=== PATIENT | female | born 1990 | race Caucasian/White ===

== ENCOUNTER 2018-10-31 20:42 | Emergency (ER) | payer MEDICAID ==
[~2018-10-31] VITALS: Ht 180.3 cm; Wt 85.0 kg
--- NOTE | 2018-10-31 21:35 | NUR ---
pt is 28 yo female c/o headache x5 days, dx with tension headache today and took prescribed med, flexeril at approx 1300, little relief, +nausea, blurry vision, family at bedside
[2018-10-31] MEDS ORDERED: proCHLORperazine 10 MG/2 ml inj IV ONE (22:45)
[2018-10-31] MEDS ORDERED: normal saline 1000ML IV soln IVB ONE (22:45)
[2018-10-31] MEDS ORDERED: diphenhydrAMINE 50 mg/ml inj IV ONE (22:45)
[2018-11-01] MEDS ORDERED: ketorolac tromethamine 15mg/ml inj. IV ONE (00:10)
[2018-11-01 00:22] VITALS: BP 132/84
== END 2018-11-01 00:23 | disposition home or self-care (01) ==
LOC: ER 20:43
DX: G43.909 Migraine, unspecified, not intractable, without status migrainosus (principal)
CPT/HCPCS: 96361; 96374; 96375; 99283; J0780; J1200; J1885; J7030

== ENCOUNTER 2018-11-04 08:01 | Emergency (ER) | payer MEDICAID ==
[~2018-11-04] VITALS: Ht 180.3 cm; Wt 84.0 kg
[2018-11-04] MEDS ORDERED: dexamethasone sod phosphate 10mg/ml inj IV STA (08:12)
[2018-11-04 08:13] VITALS: BP 135/94
[2018-11-04] MEDS ORDERED: LORazepam 2 mg/ml vial IV ONE (08:15)
[2018-11-04] MEDS ORDERED: metoclopramide 5 mg/ml inj IV ONE (08:15)
[2018-11-04] MEDS ORDERED: normal saline 1000ML IV soln IVB ONE (08:15)
[2018-11-04 08:39] LABS: BASOPHILS % (AUTO) 0.5 % (0-1); EOSINOPHILS # (AUTO) 0.1 X10'3 (0-0.9); EOSINOPHILS % (AUTO) 0.9 % (0-6); HEMATOCRIT 39.6 % (35.0-45.0); HEMOGLOBIN 13.2 g/dl (12.0-16.0); LYMPHOCYTES % (AUTO) 17.1 % (21-51); MEAN CORPUSCULAR HEMOGLOBIN 27.4 PG (27.0-31.0); MEAN CORPUSCULAR HGB CONC 33.4 g/dL (33.0-36.5); MEAN CORPUSCULAR VOLUME 82.1 FL (78-98); MEAN PLATELET VOLUME 8.3 FL (7.4-10.4); MONOCYTES # (AUTO) 0.5 X10'3 (0-0.9); MONOCYTES % (AUTO) 8.6 % (2-12); NEUTROPHILS # (AUTO) 4.3 X10'3 (1.8-7.7); NEUTROPHILS % (AUTO) 72.9 % (42-75); PLATELET COUNT 212 X10'3 (140-440); RED BLOOD COUNT 4.83 X10'6 (4.20-5.60); RED CELL DISTRIBUTION WIDTH 14.6 % (11.5-14.5); WHITE BLOOD COUNT 5.9 X10'3 (4.5-11.0)
[2018-11-04 08:41] LABS: CLARITY,URINE CLEAR (Clear); COLOR,URINE YELLOW (Yellow); GLUCOSE, URINE NEGATIVE (Neg); KETONES,URINE NEGATIVE (Neg); LEUKOCYTE ESTERASE ,URINE NEGATIVE (Neg); NITRITES, URINE NEGATIVE (Neg); OCCULT BLOOD,URINE NEGATIVE (Neg); PROTEIN,URINE NEGATIVE (Neg); UROBILINOGEN,URINE 0.2 E.U/dL (0.2-1.0)
[2018-11-04 08:44] LABS: URINE HCG NEGATIVE (NEG)
[2018-11-04 08:49] LABS: ALANINE AMINOTRANSFERASE 19 U/L (12-78); ALBUMIN 4.2 G/DL (3.4-5.0); ALBUMIN/GLOBULIN RATIO 1.2 (1.1-1.5); ALKALINE PHOSPHATASE 67 IU/L (46-116); ANION GAP 7 (8-16); ASPARTATE AMINO TRANSFERASE 9 U/L (10-37); BILIRUBIN,TOTAL 0.4 MG/DL (0.1-1.0); BLOOD UREA NITROGEN 12 MG/DL (7-18); BUN/CREATININE RATIO 14.3 (6.6-38.0); CHLORIDE 103 MMOL/L (99-107); CREATININE 0.84 MG/DL (0.40-0.90); GLUCOSE 95 MG/DL (70-104); SODIUM 137 MMOL/L (135-145); TOTAL CARBON DIOXIDE 26.6 MMOL/L (24-32); TOTAL PROTEIN 7.8 G/DL (6.4-8.2); eGFR 80 ML/MIN
[2018-11-04 08:49] LABS: UA COLLECTION TYPE CLN CATCH MIDSTREAM
[2018-11-04] MEDS ORDERED: ketorolac trometh. 30mg/ml inj. IV ONE (09:00)
== END 2018-11-04 09:34 | disposition home or self-care (01) ==
LOC: ER 08:01
DX: G43.909 Migraine, unspecified, not intractable, without status migrainosus (principal)
CPT/HCPCS: 36415; 70450; 80053; 81003; 81025; 85025; 96374; 96375; 99284; J1100; J2765; J7030